=== PATIENT | female | born 2000 | race Two or more races ===

== ENCOUNTER 2020-09-22 10:34 | Emergency (ER) | payer OTHER ==
[~2020-09-22] VITALS: Ht 160 cm; Wt 63.6 kg
[2020-09-22 13:27] VITALS: BP 122/81
== END 2020-09-22 13:28 ==
LOC: EMS 10:34
DX: Z11.1 Encounter for screening for respiratory tuberculosis (principal)
CPT/HCPCS: 71045; 99283